=== PATIENT | female | born 1990 ===

== ENCOUNTER 2018-09-26 17:31 | Emergency (ER) | payer OTHER ==
[2018-09-26 17:39] VITALS: BP 95/64; PULSE 70; TEMP 97.8; O2SAT 99
--- NOTE | 2018-09-26 18:01 | C.PDOC ---
History Of Present Illness Patient is a 28 yr old female who is c/o right sided sharp pain on Thursday and bumps appearing in her right flank area on . No fever. Pt does have a history of chicken pox as a child. Tylenol is not helping the pain. Time Seen by Provider: 09/26/18 17:47 Chief Complaint (Nursing): Abnormal Skin Integrity History Per: Patient Onset/Duration Of Symptoms: Days Past Medical History Reviewed: Historical Data, Nursing Documentation, Vital Signs Vital Signs: Last Vital Signs Temp 97.8 F 09/26/18 17:35 Pulse 70 09/26/18 17:35 Resp 19 09/26/18 17:35 BP 95/64 L 09/26/18 17:35 Pulse Ox 99 09/26/18 17:35 - Medical History PMH: No Chronic Diseases Family History: States: No Known Family Hx - Social History Hx Tobacco Use: No Hx Alcohol Use: No Hx Substance Use: No - Immunization History Hx Tetanus Toxoid Vaccination: Yes Hx Influenza Vaccination: Yes Hx Pneumococcal Vaccination: Yes Review Of Systems Except As Marked, All Systems Reviewed And Found Negative. Constitutional: Negative for: Fever Cardiovascular: Negative for: Chest Pain Respiratory: Negative for: Shortness of Breath Skin: Positive for: Rash Neurological: Negative for: Weakness Physical Exam - Physical Exam Appears: Well, Non-toxic, No Acute Distress Skin: Dry, Other ((+) maculopapular lesions to right flank; does not cross midline; lesions are in just 1 dermatome) Head: Atraumatic Eye(s): bilateral: Normal Inspection Ear(s): Bilateral: Normal Nose: Normal Neck: Normal Lymphatic: Deferred Chest: Symmetrical Cardiovascular: Rhythm Regular Respiratory: Normal Breath Sounds, No Rales, No Rhonchi Extremity: Normal ROM Neurological/Psych: Oriented x3, Normal Motor, Normal Sensation ED Course And Treatment O2 Sat by Pulse Oximetry: 99 Medical Decision Making Medical Decision Making: Initial Impression: Shingles Initial Plan: D/C on Valtrex / Disposition - Disposition Referrals: Ethan Carreno MD, PhD [Staff Provider] - Disposition: HOME/ ROUTINE Disposition Time: 17:59 Condition: STABLE Additional Instructions: Ms. Farris, thank you for letting us take care of you today. Return to the ER if your symptoms worsen, or if any problems. Take the medication listed below as prescribed. Follow up with your doctor in 2-3 days for a re-evaluation. Prescriptions: Valacyclovir HCl [Valtrex] 1 gm PO TID #21 tablet Instructions: Vero (DC) Forms: [facility] (Welsh) Print Language: [place]IZ[place] - POA Present On Arrival: None - Clinical Impression Clinical Impression: Vero
[2018-09-26 18:46] VITALS: RESP 18
== END 2018-09-26 18:45 | disposition home or self-care (01) ==
LOC: C.ER 17:31
DX: B02.9 Zoster without complications (principal)